=== PATIENT | male | born 1950 | race Caucasian/White ===

== ENCOUNTER 2018-03-31 19:30 | Emergency (ER) | payer OTHER ==
--- OUTSIDE RECORDS SUMMARY | 2018-03-31 19:32 | XMS REPORT | Clinical Summary ---
:1950 Author Organization [facility] Address [address] [place] [address] Care Team Providers Name Role Phone Scot Eaton MD Primary Care Provider Allergies Active Allergy Reactions Severity Noted Date Comments Hydrocodone Shortness Of Breath, High 07/22/2016 Nausea, itching Anxiety, Other (See Comments) Cephalexin 11/12/2017 Muscle and joint pain Latex, Natural Rubber Dermatitis, Itching, Low 07/22/2016 Rash Levofloxacin 11/12/2017 Muscle ache and pain Current Medications Prescription Sig. Disp. Refills Start Date End Date Status aspirin (CHILDREN'S Chew 81 mg as 02/03/2016 Active ASPIRIN) 81 mg needed. chewable tablet fluticasone 1 spray by 11/05/2015 Active (FLONASE) 50 Each Nare mcg/actuation nasal route every spray morning. bisoprolol (ZEBETA) Take 5 mg by 11/09/2017 Active 5 MG tablet mouth every morning. nortriptyline Take 25 mg by 11/07/2017 Active (PAMELOR) 25 MG mouth nightly. capsule fexofenadine Take 180 mg by Active (CHANTALE) 180 MG mouth every tablet evening. diltiazem XR 08/05/2015 11/12/2017 Discontinued (DILACOR XR) 180 MG 24 hr capsule LORAZepam (ATIVAN) 03/05/2016 11/12/2017 Discontinued 0.5 MG tablet magnesium oxide 400 02/03/2016 11/12/2017 Discontinued mg capsule methocarbamol Take 1 tablet 90 tablet 3 11/23/2017 01/05/2018 Discontinued (ROBAXIN-750) 750 (750 mg total) MG tablet by mouth 3 (three) times a day for 120 days. promethazine Take 1 tablet 30 tablet 0 11/23/2017 12/22/2017 Discontinued (PHENERGAN) 25 MG (25 mg total) tablet by mouth every 6 (six) hours as needed for nausea or vomiting. acetaminophen-codei Take 1-2 40 tablet 0 11/23/2017 12/22/2017 Discontinued ne (TYLENOL WITH tablets by CODEINE #3) 300-30 mouth every 4 mg per tablet (four) hours as needed for moderate pain for up to 30 days. Take with food Active Problems Problem Noted Date Aftercare following surgery 11/25/2017 Left wrist sprain 09/08/2017 Carpal tunnel syndrome, left 07/22/2016 Primary localized osteoarthrosis of left hand 07/22/2016 Dupuytren's contracture of left hand 07/22/2016 Encounters Date Type Specialty Care Team Description 03/09/2018 Office Visit Orthopedic Surgery Palmer Escobar, Primary localized MD osteoarthrosis of left hand (Primary Dx) 02/02/2018 Office Visit Orthopedic Surgery Palmer Escobar, Primary localized osteoarthrosis of left hand (Primary Dx); Aftercare following surgery 01/05/2018 Office Visit Orthopedic Surgery Palmer Escobar, Primary localized MD osteoarthrosis of left hand (Primary Dx) 12/22/2017 Office Visit Orthopedic Surgery Palmer Escobar, Primary localized osteoarthrosis of left hand (Primary Dx); Carpal tunnel syndrome, left; Aftercare following surgery 12/08/2017 Office Visit Orthopedic Surgery Palmer Escobar, Primary localized osteoarthrosis of left hand (Primary Dx); Carpal tunnel syndrome, left; Aftercare following surgery 12/03/2017 Office Visit Orthopedic Surgery Palmer Escobar, Primary localized osteoarthrosis of left hand (Primary Dx); Carpal tunnel syndrome, left; Aftercare following surgery 12/02/2017 Telephone Orthopedic Surgery Ramona Wallis MA 11/26/2017 Telephone Orthopedic Surgery Kylie Guevara PA 11/25/2017 Hospital Encounter Orthopedic Palmer Mandel MD 11/25/2017 Anesthesia Event Orthopedic Surgery Margarette Avalos MD 11/25/2017 Procedure Pass Orthopedic Surgery 11/25/2017 Surgery Orthopedic Surgery Palmer Escobar, ARTHROPLASTY JACKIE, CARPOMETACARPAL 11/23/2017 Orders Only Orthopedic Surgery Palmer Escobar MD 11/12/2017 Pre-Admit Testing Pre-Admission Palmer Escobar, Appointment Testing 11/12/2017 Office Visit Orthopedic Surgery Palmer Escobar, Primary localized osteoarthrosis of left hand (Primary Dx); Carpal tunnel syndrome, left 10/13/2017 Office Visit Orthopedic Surgery Palmer Escobar, Primary localized osteoarthrosis of left hand (Primary Dx); Carpal tunnel syndrome, left; Dupuytren's contracture of left hand 09/08/2017 Office Visit Orthopedic Surgery Palmer Escobar, Carpal tunnel syndrome, left (Primary Dx); Primary localized osteoarthrosis of left hand; Dupuytren's contracture of left hand; Sprain of left wrist, initial encounter 08/11/2017 Office Visit Orthopedic Surgery Palmer Escobar, Primary localized osteoarthrosis of left hand (Primary Dx); Dupuytresahra's contracture; Carpal tunnel syndrome, left after 03/30/2017 Family History Medical History Relation Name Comments Cancer Brother Cancer Father Cancer Mother Heart disease Mother Relation Name Status Comments Brother Father Mother Social History Tobacco Use Types Packs/Day Years Used Date Never Smoker Smokeless Tobacco: Former User Chew Quit: 1989 Alcohol Use Drinks/Week oz/Week Comments Yes 10 drinks per week Sex Assigned at Date Recorded Not on file Last Filed Vital Signs Vital Sign Reading Time Taken Blood Pressure 129/64 11/25/2017 5:50 PM CLINICAL NURSING PROFESSOR Pulse 74 11/25/2017 5:50 PM CLINICAL NURSING PROFESSOR Temperature 36.3 C (97.3 F) 11/25/2017 5:50 PM CLINICAL NURSING PROFESSOR Respiratory Rate 18 11/25/2017 5:50 PM CLINICAL NURSING PROFESSOR Oxygen Saturation 96% 11/25/2017 5:50 PM CLINICAL NURSING PROFESSOR Inhaled Oxygen Concentration - - Weight 96.6 kg (213 lb) 11/12/2017 11:31 AM CLINICAL NURSING PROFESSOR Height 175.3 cm (5' 9") 11/25/2017 11:50 AM CLINICAL NURSING PROFESSOR Body Mass Index 31.45 11/12/2017 11:31 AM CLINICAL NURSING PROFESSOR Plan of Treatment Date Type Specialty Care Team Description 04/13/2018 Office Visit Cardiology Shayne Butler MD [address] [address] Health Maintenance Due Date Last Done Comments COLON CANCER SCREENING 1999 SHINGRIX VACCINE (#1) 1999 ZOSTER VACCINE 2009 PNEUMOCOCCAL POLYSACCHARIDE VACCINE AGE 65 AND OVER 2014 PNEUMOCOCCAL-13 2014 INFLUENZA VACCINE 05/05/2018 Implants Implanted Type 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 Technician Device Expiration Model / Identifier Date Serial / Lot Wire K Dmnd Tip 0.045in 9mm - [id number] Temporary Left: [employer] [id number] / Implanted: Qty: 1 on 11/25/2017 by Palmer Escobar MD Fixation Pin Hand / or Wire Wire K Dmnd Tip 0.045in 9mm - [id number] Temporary Left: [employer] 26 [id number] / Implanted: Qty: 1 on 11/25/2017 by Palmer Escobar MD Fixation Pin Hand / or Wire Wire Krsch .[id number] - [id number] Temporary Left: [employer] [id number] / Implanted: Qty: 1 on 11/25/2017 by Palmer Escobar MD Fixation Pin Hand / or Wire Procedures Procedure Name Priority Date/Time Associated Diagnosis Comments XR HAND 3+ VW LEFT Routine 02/02/2018 1:26 Primary localized Results for this PM CDT osteoarthrosis of left procedure are in hand the results section. XR HAND 3+ VW LEFT Routine 01/05/2018 2:37 Primary localized Results for this PM CDT osteoarthrosis of left procedure are in hand the results section. XR HAND 3+ VW LEFT Routine 12/22/2017 2:14 Primary localized Results for this PM CDT osteoarthrosis of left procedure are in hand the results section. XR HAND 3+ VW LEFT Routine 12/08/2017 2:52 Primary localized Results for this PM CLINICAL NURSING PROFESSOR osteoarthrosis of left procedure are in hand the results Carpal tunnel section. syndrome, left PA APPLY FOREARM Routine 12/08/2017 2:50 Primary localized Results for this SPLINT,STATIC PM CLINICAL NURSING PROFESSOR osteoarthrosis of left procedure are in hand the results Carpal tunnel section. syndrome, left Aftercare following surgery PA APPLY FOREARM Routine 12/03/2017 11:50 Primary localized Results for this SPLINT,STATIC AM CLINICAL NURSING PROFESSOR osteoarthrosis of left procedure are in hand the results Aftercare following section. surgery XR HAND 3+ VW LEFT Routine 12/03/2017 11:30 Primary localized Results for this AM CLINICAL NURSING PROFESSOR osteoarthrosis of left procedure are in hand the results section. PA AN PERIPHERAL Routine 11/25/2017 4:58 BLOCK PROCEDURE FOR PM CLINICAL NURSING PROFESSOR PAIN Procedure Note - Sumit Lobo MD - 11/25/2017 4:58 PM CLINICAL NURSING PROFESSOR Peripheral Block Performed by: SUMIT LOBO Authorized by: SUMIT LOBO Patient Location: PACU Reason for Block: at surgeon's request, post-op pain management, procedure for pain Staff: Anesthesiologist: SUMIT LOBO Performed by: Anesthesiologist Preprocedure: patient identified, IV checked, site and side verified, risks and benefits discussed, procedure verified, surgical consent complete, patient position confirmed, monitors and equipment checked, pre-op evaluation complete and site marked Peripheral Nerve Block: Patient Position: Supine Prep: ChloraPrep Monitoring: Blood pressure monitoring, continuous pulse oximetry and heart rate Block Type: Supraclavicular Laterality: Left Injection Technique: Single injection Procedures: ultrasound guided Ultrasound documentation: Images saved on hard disk and printed/placed in chart Local Infiltration (See MAR for details): Ropivacaine Needle: Needle Type: Pajunk Needle Length: 10 cm Assessment: Injection Assessment: Visualized needle/local anesthetic surrounding nerve , intermittent aspiration during local anesthetic administration, visualized pertinent vascular structures and nerves, no symptoms of intraneural/intravenous injection and needle tip visualized at all times during injection of medication Paresthesia Pain: None Heart Rate Change: No Slow Fractionated Injection: Yes Block outcome: No apparent complications, patient comfortable and patient tolerated procedure well PA AN PERIPHERAL BLOCK POST-OP PAIN Routine 11/25/2017 4:58 PM CLINICAL NURSING PROFESSOR Procedure Note - Sumit Loob MD - 11/25/2017 4:58 PM CLINICAL NURSING PROFESSOR Peripheral Block Performed by: SUMIT LOBO Authorized by: SUMIT LOBO Patient Location: PACU Reason for Block: at surgeon's request, post-op pain management, procedure for pain Staff: Anesthesiologist: SUMIT LOBO Performed by: Anesthesiologist Preprocedure: patient identified, IV checked, site and side verified, risks and benefits discussed, procedure verified, surgical consent complete, patient position confirmed, monitors and equipment checked, pre-op evaluation complete and site marked Peripheral Nerve Block: Patient Position: Supine Prep: ChloraPrep Monitoring: Blood pressure monitoring, continuous pulse oximetry and heart rate Block Type: Supraclavicular Laterality: Left Injection Technique: Single injection Procedures: ultrasound guided Ultrasound documentation: Images saved on hard disk and printed/placed in chart Local Infiltration (See MAR for details): Ropivacaine Needle: Needle Type: Pajunk Needle Length: 10 cm Assessment: Injection Assessment: Visualized needle/local anesthetic surrounding nerve , intermittent aspiration during local anesthetic administration, visualized pertinent vascular structures and nerves, no symptoms of intraneural/intravenous injection and needle tip visualized at all times during injection of medication Paresthesia Pain: None Heart Rate Change: No Slow Fractionated Injection: Yes Block outcome: No apparent complications, patient comfortable and patient tolerated procedure well PA AN ELECTIVE SUPRAGLOTTIC AIRWAY Routine 11/25/2017 3:15 PM CLINICAL NURSING PROFESSOR Procedure Note - Quinn Bishop CRNA - 11/25/2017 3:15 PM CLINICAL NURSING PROFESSOR Airway Performed by: QUINN BISHOP Authorized by: JOHN MONROE Location: OR Urgency: Elective Difficult Airway: No Preoxygenated with 100% O2: Yes C-spine Precautions Maintained Throughout: No Mask Ventilation: Not attempted Final Airway Type: Supraglottic airway Final LMA: I-Gel LMA Size: 5 Number of Attempts at Approach: 1 Atraumatic, teeth/tissue unchanged. RELEASE, CARPAL TUNNEL 11/25/2017 2:00 Carpal tunnel PM CLINICAL NURSING PROFESSOR syndrome, left ARTHRODESIS, THUMB, 11/25/2017 2:00 Carpal tunnel CARPOMETACARPAL PM CLINICAL NURSING PROFESSOR syndrome, left POC GLUCOSE Routine 11/25/2017 12:29 Results for this PM CLINICAL NURSING PROFESSOR procedure are in the results section. XR HAND 3+ VW LEFT Routine 08/11/2017 3:51 Primary localized Results for this PM CLINICAL NURSING PROFESSOR osteoarthrosis of procedure are in left hand the results Dupuytren's section. contracture Carpal tunnel syndrome, left after 03/30/2017 Results XR Hand 3+ Vw Left (02/02/2018 1:26 PM)Only the most recent of6 resultswithin the time period is included. Narrative Performed At PA, lateral, oblique x-rays demonstrate satisfactory maintenance of the [facility] trapezial space.No remaining hardware is noted. Performing Organization Address City/State/Zipcode Phone Number [facility] [address] [place] [address] ORTHOPEDIC INJURY TREATMENT (12/08/2017 2:50 PM) Narrative Performed At Palmer Escobar MD 12/08/20173:51 PM Orthopedic Injury Treatment Date/Time: 12/08/2017 3:50 PM Performed by: PALMER ESCOBAR Authorized by: PALMER ESCOBAR Consent given by: parent Injury Location details: left hand Pre-procedure assessment Distal perfusion: normal Distal sensation: normal Range of motion: reduced Procedure Manipulation performed? no manipulation performed Anesthetics: local anesthesia not used Immobilization: splint Splint/Brace type: thumb spica Supplies used: cotton padding and Ortho-Glass Post-procedure assessment Distal perfusion: normal Distal sensation: normal Patient tolerance: patient tolerated the procedure well with no immediate complications ORTHOPEDIC INJURY TREATMENT (12/03/2017 11:50 AM) Narrative Performed At Palmer Escobar MD 12/03/2017 11:46 AM Orthopedic Injury Treatment Date/Time: 12/03/2017 11:44 AM Performed by: PALMER ESCOBRA Authorized by: PALMER ESCOBAR Consent given by: patient Site marked: site marked Injury Location details: left hand Pre-procedure assessment Distal perfusion: normal Distal sensation: normal Range of motion: reduced Procedure Manipulation performed? no manipulation performed Anesthetics: local anesthesia not used Immobilization: splint Splint/Brace type: thumb spica Supplies used: cotton padding and Ortho-Glass Post-procedure assessment Distal perfusion: normal Distal sensation: normal Patient tolerance: patient tolerated the procedure well with no immediate complications POC glucose (11/25/2017 12:29 PM) POC glucose 91 65 - 99 mg/dL [facility] DEPARTMENT OF PATHOLOGY AND Comment: GENOMIC MEDICINE Meter ID: [id number] Community Life Director: Marco Hernandez Performing Organization Address City/State/Zipcode Phone Number [facility] DEPARTMENT OF PATHOLOGY AND [address] [place] [id number] GENOMIC MEDICINE after 03/30/2017 Insurance Payer Benefit Plan / Group Subscriber ID Type Phone Address AETNA AETNA HMO,POS,EPO, MC/EC xxxxxxxxx O MEDICARE MEDICARE PART A xxxxxxxxxx Medicare [place], [place] [phone] [place] [address]
[2018-03-31 20:07] LABS: Absolute Lymphocytes (CBC) 2.9 K/uL (0.7-4.9); Absolute Monocytes 0.6 K/uL (0.1-1.3); Absolute Neutrophil 3.1 K/uL (1.8-8.0); Basophils % 0.6 % (0-1.3); Eosinophils % 1.6 % (0-4.4); Hematocrit 42.6 % (39.6-49.0); Lymphocytes % 42.9 % (15.3-44.8); MCH 31.9 pg (27.0-35.0); MCV 96.8 fL (80-100); MPV 8.6 fL (7.6-11.3); Monocytes % 8.3 % (3.3-12.3)
[2018-03-31 20:11] LABS: Protime INR 0.96
[2018-03-31] MEDS ORDERED: SUCRALFATE 1GM/10ML UCUP ONE (20:23)
[2018-03-31 20:28] LABS: ALT/SGPT 34 U/L (12-78); AST/SGOT 20 U/L (15-37); Albumin 3.8 g/dL (3.4-5.0); Alkaline Phosphatase 61 U/L (45-117); BUN Blood Urea Nitrogen 16 mg/dL (7-18); Bicarbonate 30 mmol/L (21-32); Bilirubin Direct < 0.1 mg/dL (0-0.2); Bilirubin Total 0.2 mg/dL (0.2-1.0); Glucose Level 98 mg/dL (74-106); Lipase 251 U/L (73-393); Magnesium 2.4 mg/dL (1.8-2.4); Potassium 4.3 mmol/L (3.5-5.1); Protein, Total 7.2 g/dL (6.4-8.2); Sodium Level 140 mmol/L (136-145)
--- NOTE | 2018-03-31 21:32 | RAD REPORT ---
EXAM DESCRIPTION: RAD - Chest Single View - 03/31/2018 8:17 pm CLINICAL HISTORY: Persistent chest pain COMPARISON: April 2017 TECHNIQUE: AP portable chest image was obtained 2013 hours . FINDINGS: Lungs are clear. Heart and vasculature are normal. No measurable pleural effusion and no p neumothorax. No gross bony abnormality seen. No acute aortic findings suspected. IMPRESSION: No acute cardiopulmonary process. No significant interval change.
--- NOTE | 2018-03-31 22:23 | ER ---
Nurse's Notes [facility] Name: Ton Faith Age: 67 yrs Sex: Male : 1950 Arrival Date: 03/31/2018 Time: 19:32 Bed 5 Private MD: Scot Eaton Diagnosis: Epigastric pain;Essential (primary) hypertension Presentation: 03/31 19:46 Presenting complaint: Patient states: I have had chest pain for about 1 week with some tl1 acid reflux. I have an appointment with the pipeline systems operator next week but wanted to make sure it wasn't cardiac related. I also have constant migraines and see a neurologist. Transition of care: patient was not received from another setting of care. Onset of symptoms was March 24, 2018. Risk Assessment: Do you want to hurt yourself or someone else? Patient reports no desire to harm self or others. Initial Sepsis Screen: Does the patient meet any 2 criteria? No. Patient's initial sepsis screen is negative. Does the patient have a suspected source of infection? No. Patient's initial sepsis screen is negative. Care prior to arrival: Medication(s) given: ASA, 81 mg. 19:46 Method Of Arrival: Wheelchair tl1 19:46 Acuity: ARACELIS 2 tl1 Historical: - Allergies: 19:52 HYDROCODONE; tl1 19:52 Keflex; tl1 19:52 latex; tl1 19:52 Levofloxacin; tl1 19:52 Latex, Natural Rubber; tl1 - Home Meds: 19:52 Amitriptyline Oral [Active]; bisoprolol fumarate oral oral [Active]; tl1 - PMHx: 19:52 Hypertension; Migraines; tl1 - PSHx: 19:52 Carpal Tunnel Repair; tl1 - Immunization history:: Adult Immunizations up to date. - Social history:: Smoking status: Patient/guardian denies using tobacco, never smoked. - Ebola Screening: : Patient negative for fever greater than or equal to 101.5 degrees Fahrenheit, and additional compatible Ebola Virus Disease symptoms Patient denies exposure to infectious person Patient denies travel to an Ebola-affected area in the 21 days before illness onset. Screenin:59 Abuse screen: Denies threats or abuse. Denies injuries from another. Nutritional tl1 screening: No deficits noted. Tuberculosis screening: No symptoms or risk factors identified. Fall Risk IV access (20 points). Assessment: 19:56 General: Appears in no apparent distress. Behavior is calm, cooperative, appropriate tl1 for age. Pain: Complains of pain in xyphoid area and mid-sternal area Pain does not radiate. 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 Neuro: Level of Consciousness is awake, alert, obeys commands, Oriented to person, place, time, situation, Blackener are equal bilaterally Moves all extremities. Cardiovascular: Reports chest pain, lightheadedness, nausea, Heart tones present Capillary refill < 3 seconds JVD is absent Patient's skin is warm and dry. Rhythm is sinus rhythm. Respiratory: Reports cough that is Airway is patent Breath sounds are clear bilaterally. GI: Bowel sounds present X 4 quads. Abd is soft and non tender X 4 quads. Reports epigastric pain, nausea, Patient currently denies vomiting. : No signs and/or symptoms were reported regarding the genitourinary system. EENT: No signs and/or symptoms were reported regarding the EENT system. 20:45 Reassessment: Patient appears in no apparent distress at this time. Patient and/or tl2 family updated on plan of care and expected duration. Pain level reassessed. Patient is alert, oriented x 3, equal unlabored respirations, skin warm/dry/pink. 22:34 Reassessment: No changes from previously documented assessment. Patient and/or family tl1 updated on plan of care and expected duration. Pain level reassessed. Patient is alert, oriented x 3, equal unlabored respirations, skin warm/dry/pink. Patient states feeling better. Patient states symptoms have improved. Vital Signs: 19:53 BP 150 / 84; Pulse 67; Resp 16; Temp 99.3(O); Pulse Ox 100% on R/A; Weight 95.25 kg; tl1 Height 5 ft. 9 in. (175.26 cm); Pain 4/10; 20:45 BP 146 / 81; Pulse 61; Resp 14; Pulse Ox 98% on R/A; tl2 21:13 BP 127 / 79; Pulse 61; Resp 13; Pulse Ox 100% on R/A; tl2 21:36 BP 132 / 81; Pulse 60; Resp 21; Pulse Ox 98% on R/A; tl2 22:36 BP 136 / 75; Pulse 57; Resp 16; Temp 98.5; Pulse Ox 99% on R/A; Pain 2/10; tl1 19:53 Body Mass Index 31.01 (95.25 kg, 175.26 cm) tl1 ED Course: 19:32 Patient arrived in ED. am2 19:32 Scot Eaton MD is Private Physician. am2 19:38 Delvin Andres MD is Attending Physician. gs 19:46 Trish Good RN is Primary Nurse. tl1 19:46 Inserted saline lock: 20 gauge in right antecubital area, using aseptic technique. tl2 Blood collected. 19:46 Initial lab(s) drawn, by me, sent to lab. EKG done, by ED staff. tl2 19:48 Triage completed. tl1 19:55 Arm band placed on right wrist. tl1 20:14 X-ray completed. Portable x-ray completed in exam room. Patient tolerated procedure kc2 well. 20:16 XRAY Chest (1 view) In Process Unspecified. EDMS 22:35 No provider procedures requiring assistance completed. IV discontinued, intact, tl1 bleeding controlled, No redness/swelling at site. Pressure dressing applied. Patient maintains SpO2 saturation greater than 95% on room air. Administered Medications: 20:26 Drug: CarafATE 1 grams Route: PO; tl1 22:37 Follow up: Response: No adverse reaction; Marked relief of symptoms tl1 Outcome: 22:23 Discharge ordered by . gs 22:37 Patient left the ED. tl1 Signatures: Dispatcher [employer] EDMS Trish Good RN RN tl1 Lauren Pittman [facility] Toshia Ordaz RN RN tl2 Analy [place] 2 Delvin Andres MD MD
--- NOTE | 2018-03-31 22:23 | EDPHYS ---
Physician Documentation [facility] Name: Ton Faith Age: 67 yrs Sex: Male : 1950 Arrival Date: 03/31/2018 Time: 19:32 Bed 5 Private MD: Scot Eaton ED Physician Delvin Andres HPI: 03/31 22:19 This 67 yrs old Male presents to ER via Wheelchair with complaints of Chest gs Pain > 30 y/o, Headache. 22:19 The patient or guardian reports chest pain that is located primarily in the epigastric gs area. Onset: 1 year(s) ago. The pain does not radiate. Associated signs and symptoms: Pertinent negatives: shortness of breath. The chest pain is described as burning, causing indigestion. Duration: The patient or guardian reports multiple episodes, that are intermittent, that wax and wane, with no pattern. Modifying factors: The symptoms are alleviated by nothing. the symptoms are aggravated by nothing. Severity of pain: At its worst the pain was mild in the emergency department the pain is unchanged. The patient has experienced similar episodes in the past, chronically, has seen for this continues to be worked up by neurology for his vertigo which has accompanied this and cardiology has new chief analytics officer this next week. according to him and is chronic. Historical: - Allergies: 19:52 HYDROCODONE; tl1 19:52 Keflex; tl1 19:52 latex; tl1 19:52 Levofloxacin; tl1 19:52 Latex, Natural Rubber; tl1 - Home Meds: 19:52 Amitriptyline Oral [Active]; bisoprolol fumarate oral oral [Active]; tl1 - PMHx: 19:52 Hypertension; Migraines; tl1 - PSHx: 19:52 Carpal Tunnel Repair; tl1 - Immunization history:: Adult Immunizations up to date. - Social history:: Smoking status: Patient/guardian denies using tobacco, never smoked. - Ebola Screening: : Patient negative for fever greater than or equal to 101.5 degrees Fahrenheit, and additional compatible Ebola Virus Disease symptoms Patient denies exposure to infectious person Patient denies travel to an Ebola-affected area in the 21 days before illness onset. ROS: 22:19 All other systems are negative. gs 22:19 Abdomen/GI: Negative for abdominal distension, rectal bleeding. gs Exam: 22:19 Head/Face: Normocephalic, atraumatic. Eyes: Pupils equal round and reactive to light, gs extra-ocular motions intact. Lids and lashes normal. Conjunctiva and sclera are non-icteric and not injected. Cornea within normal limits. Periorbital areas with no swelling, redness, or edema. ENT: Nares patent. No nasal discharge, no septal abnormalities noted. Tympanic membranes are normal and external auditory canals are clear. Oropharynx with no redness, swelling, or masses, exudates, or evidence of obstruction, uvula midline. Mucous membranes moist. Neck: Trachea midline, no thyromegaly or masses palpated, and no cervical lymphadenopathy. Supple, full range of motion without nuchal rigidity, or vertebral point tenderness. No Meningismus. Chest/axilla: Normal chest wall appearance and motion. Nontender with no deformity. No lesions are appreciated. Cardiovascular: Regular rate and rhythm with a normal S1 and S2. No gallops, murmurs, or rubs. Normal PMI, no JVD. No pulse deficits. Respiratory: Lungs have equal breath sounds bilaterally, clear to auscultation and percussion. No rales, rhonchi or wheezes noted. No increased work of breathing, no retractions or nasal flaring. Abdomen/GI: Soft, non-tender, with normal bowel sounds. No distension or tympany. No guarding or rebound. No evidence of tenderness throughout. Back: No spinal tenderness. No costovertebral tenderness. Full range of motion. Skin: Warm, dry with normal turgor. Normal color with no rashes, no lesions, and no evidence of cellulitis. MS/ Extremity: Pulses equal, no cyanosis. Neurovascular intact. Full, normal range of motion. Neuro: Awake and alert, GCS 15, oriented to person, place, time, and situation. Cranial nerves II-XII grossly intact. Motor strength 5/5 in all extremities. Sensory grossly intact. Cerebellar exam normal. Normal gait. 22:19 Constitutional: The patient appears alert, awake. 22:19 ECG was reviewed by the Attending Physician. Vital Signs: 19:53 BP 150 / 84; Pulse 67; Resp 16; Temp 99.3(O); Pulse Ox 100% on R/A; Weight 95.25 kg; tl1 Height 5 ft. 9 in. (175.26 cm); Pain 4/10; 20:45 BP 146 / 81; Pulse 61; Resp 14; Pulse Ox 98% on R/A; tl2 21:13 BP 127 / 79; Pulse 61; Resp 13; Pulse Ox 100% on R/A; tl2 21:36 BP 132 / 81; Pulse 60; Resp 21; Pulse Ox 98% on R/A; tl2 22:36 BP 136 / 75; Pulse 57; Resp 16; Temp 98.5; Pulse Ox 99% on R/A; Pain 2/10; tl1 19:53 Body Mass Index 31.01 (95.25 kg, 175.26 cm) tl1 MDM: 19:52 Patient medically screened. 22:19 Differential diagnosis: abnormal EKG, pancreatitis, peptic ulcer disease. Data reviewed: vital signs. 22:24 Response to treatment: the patient's symptoms have resolved after treatment, the patient's condition has returned to base line. 03/31 19:53 Order name: PT-INR; Complete Time: 20:51 03/31 19:53 Order name: Basic Metabolic Panel; Complete Time: 20:51 03/31 19:53 Order name: CBC with Diff; Complete Time: 20:51 03/31 19:53 Order name: LFT's; Complete Time: 20:51 03/31 19:53 Order name: Magnesium; Complete Time: 20:51 03/31 19:53 Order name: Troponin (emerg Dept Use Only); Complete Time: 20:51 03/31 19:53 Order name: XRAY Chest (1 view); Complete Time: 21:53 03/31 19:53 Order name: EKG; Complete Time: 19:53 03/31 19:53 Order name: Cardiac monitoring; Complete Time: 19:54 03/31 19:53 Order name: EKG - Nurse/Tech; Complete Time: 19:54 03/31 19:53 Order name: IV Saline Lock; Complete Time: 19:54 03/31 19:53 Order name: Labs collected and sent; Complete Time: 19:54 03/31 19:53 Order name: Lipase; Complete Time: 20:51 03/31 19:53 Order name: O2 Per Protocol; Complete Time: 19:54 03/31 19:53 Order name: O2 Sat Monitoring; Complete Time: 19:54 gs EC:19 Rate is 68 beats/min. Rhythm is regular. WA interval is normal. QRS interval is normal. gs QT interval is normal. No ST changes noted. Clinical impression: Normal ECG. Interpreted by me. Administered Medications: 20:26 Drug: CarafATE 1 grams Route: PO; tl1 22:37 Follow up: Response: No adverse reaction; Marked relief of symptoms tl1 Disposition: 03/31/18 22:23 Discharged to Home. Impression: Epigastric pain, Essential (primary) hypertension. - Condition is Stable. - Discharge Instructions: Hypertension, Managing Your High Blood Pressure. - Medication Reconciliation Form, Thank You Letter, Antibiotic Education, Prescription Opioid Use form. - Follow up: Private Physician; When: Tomorrow; Reason: Recheck today's complaints, Re-evaluation by your physician. Signatures: Dispatcher [employer] EDMS Trish Good RN RN tl1 Delvin Andres MD MD Corrections: (The following items were deleted from the chart) 22:37 22:23 03/31/2018 22:23 Discharged to Home. Impression: Epigastric pain; Essential tl1 (primary) hypertension. Condition is Stable. Forms are Medication Reconciliation Form, Thank You Letter, Antibiotic Education, Prescription Opioid Use. Follow up: Private Physician; When: Tomorrow; Reason: Recheck today's complaints, Re-evaluation by your physician. gs
[2018-03-31 22:45] VITALS: BP 136/75; TEMP 98.5; O2SAT 99
--- NOTE | 2018-04-01 06:54 | EKG ---
Test Date: 2018-03-31 Test Time: 19:38:44 Guide Visitor: KEDAR MEASUREMENT RESULTS: Intervals: Rate: 68 MI: 198 QRSD: 76 QT: 394 QTc: 418 [place]: P: 38 MI: 198 QRS: 10 T: 49 INTERPRETIVE STATEMENTS: Normal sinus rhythm Normal ECG Compared to ECG 04/27/2017 07:45:52 No significant changes Electronically Signed On 04-01-18 06:54:08 CDT by Dominick Henriquez
== END 2018-03-31 22:37 | disposition home or self-care (01) ==
LOC: ER 19:30
DX: R10.13 Epigastric pain (principal); Z88.5 Allergy status to narcotic agent; Z88.8 Allergy status to other drugs, medicaments and biological substances; Z88.1 Allergy status to other antibiotic agents; Z91.040 Latex allergy status; I10 Essential (primary) hypertension; G43.909 Migraine, unspecified, not intractable, without status migrainosus
CPT/HCPCS: 36415; 71045; 80048; 80076; 83690; 83735; 84484; 85025; 85610; 93005; 99285

== ENCOUNTER 2019-05-02 18:58 | Observation (INO) | payer OTHER ==
--- OUTSIDE RECORDS SUMMARY | 2019-05-02 19:01 | XMS REPORT | Clinical Summary ---
:1950 Author Organization [facility] Address [address] [place] [address] Care Team Providers Name Role Phone Scot Eaton MD Primary Care Provider Allergies Active Allergy Reactions Severity Noted Date Comments Hydrocodone Shortness Of Breath, High 07/22/2016 Nausea, itching Anxiety, Other (See Comments) Cephalexin 11/12/2017 Muscle and joint pain Latex, Natural Rubber Dermatitis, Itching, Low 07/22/2016 Rash Levofloxacin 11/12/2017 Muscle ache and pain Medications Medication Sig Dispensed Refills Start Date End Date Status fluticasone (FLONASE) 50 1 spray by 0 11/05/2015 Active mcg/actuation nasal Each Nare spray route every morning. fexofenadine (CHANTALE) Take 180 mg 0 Active 180 MG tablet by mouth every evening. pravastatin (PRAVACHOL) Take 1 90 tablet 3 05/04/2018 05/04/20 Active 40 MG tablet tablet (40 19 mg total) by mouth daily. gabapentin (NEURONTIN) 0 12/17/2018 Active 100 mg capsule meclizine (ANTIVERT) 25 Take 25 mg 3 03/02/2019 Active mg tablet by mouth every 8 (eight) hours as needed. bisoprolol (ZEBETA) 10 TAKE 1 90 tablet 3 05/02/2019 Active MG tablet TABLET BY MOUTH EVERY DAY aspirin (CHILDREN'S Chew 81 mg 0 02/03/2016 03/21/20 Discontinued ASPIRIN) 81 mg chewable as needed. 19 tablet bisoprolol (ZEBETA) 5 MG Take 5 mg by 0 11/09/2017 05/11/20 Discontinued tablet mouth every 18 morning. nortriptyline (PAMELOR) Take 25 mg 0 11/07/2017 03/21/20 Discontinued 25 MG capsule by mouth 19 nightly. sucralfate (CARAFATE) 1 Take 1 g by 0 03/21/20 Discontinued gram tablet mouth 2 19 (two) times a day. rosuvastatin (CRESTOR) Take 1 90 tablet 3 04/13/2018 06/29/20 Discontinued 10 MG tabletIndications: tablet (10 18 Chest pain, unspecified mg total) by type, Syncope, mouth daily. unspecified syncope type hydroCHLOROthiazide Take 1 90 tablet 3 04/16/2018 06/29/20 Discontinued (HYDRODIURIL) 25 MG tablet (25 18 tablet mg total) by mouth daily. pravastatin (PRAVACHOL) Take 1 90 tablet 3 04/29/2018 05/04/20 Discontinued 40 MG tablet tablet (40 18 mg total) by mouth daily. bisoprolol (ZEBETA) 10 Take 1 90 tablet 3 05/11/2018 04/30/20 Discontinued MG tablet tablet (10 19 mg total) by mouth daily. ALPRAZolam (XANAX) 0.5 Take 0.5 mg 0 04/29/2018 03/21/20 Discontinued MG tablet by mouth 19 every 8 (eight) hours as needed. for anxiety Active Problems Problem Noted Date Essential hypertension 04/13/2018 Carotid bruit 04/13/2018 Chest pain 04/13/2018 Syncope 04/13/2018 Pure hypercholesterolemia 04/13/2018 Aftercare following surgery 11/25/2017 Left wrist sprain 09/08/2017 Carpal tunnel syndrome, left 07/22/2016 Primary localized osteoarthrosis of left hand 07/22/2016 Dupuytren's contracture of left hand 07/22/2016 Encounters Date Type Specialty Care Team Description 04/30/2019 Refill Cardiology Shayne Butler Med Refill MD Teresita 04/28/2019 Orders Only Cardiology Maia, Dizziness (Primary Dx); TRACE Guaman Light headedness 03/21/2019 Office Visit Orthopedic Surgery Toshia Toth Left knee pain, unspecified chronicity (Primary Dx); MD [place]ah[place] Primary localized osteoarthritis of left knee 02/08/2019 Office Visit Cardiology Shayne Butler Essential hypertension MD Teresita (Primary Dx) 09/08/2018 Orders Only Cardiology Karin Torres Chest pain, unspecified type; Y Syncope, unspecified syncope type 06/29/2018 Office Visit Cardiology Shayne Butler Essential hypertension ( Primary Dx); MD Teresita Pure hypercholesterolemia 06/04/2018 Orders Only Cardiology Shayne Butler MD 05/11/2018 Orders Only Cardiology Rowena Carvalho MA 05/07/2018 Orders Only Cardiology Karin Torres Chest pain, unspecified type; Y Syncope, unspecified syncope type 05/04/2018 Orders Only Cardiology Shayne Butler MD 05/04/2018 Refill Cardiology Shayne Butler Med Refill MD Teresita after 05/01/2018 Family History Medical History Relation Name Comments Cancer Brother Hypertension Brother Juan Fan. Hypertension Brother Steve Saunders Cancer Father Heart attack Maternal Uncle Momo Cancer Mother Danica Heart disease Mother Danica Heart failure Mother Danica Fainting Paternal Uncle Jaky several episode in his late 80's and early 90's Heart attack Paternal Uncle Jorge P Fainting Sister Tanya within last year had 2-3 episodes Relation Name Status Comments Brother Brother Juan Fan. Brother Steve Saunders Father Maternal Uncle Momo Mother Danica Paternal Uncle Jaky Paternal Uncle Jorge P Sister Tanya Social History Tobacco Use Types Packs/Day Years Used Date Never Smoker Smokeless Tobacco: Former User Quit: 1989 Comments: Smokeless tobacco user for approximately 18 years. Last used in 1985 Alcohol Use Drinks/Week oz/Week Comments Yes 6 Glasses of wine 10 drinks per week 6-8 Cans of beer 0 Shots of liquor Sex Assigned at Date Recorded Male 02/07/2019 7:02 PM CDT Job Start Date Occupation Industry Not on file Not on file Not on file Travel History Travel Start Travel End No recent travel history available. Last Filed Vital Signs Vital Sign Reading Time Taken Blood Pressure 146/66 02/08/2019 8:24 AM CDT Pulse 55 02/08/2019 8:24 AM CDT Temperature - - Respiratory Rate - - Oxygen Saturation - - Inhaled Oxygen Concentration - - Weight 90.7 kg (200 lb) 03/21/2019 8:41 AM CDT Height 177.8 cm (5' 10") 03/21/2019 8:41 AM CDT Body Mass Index 28.7 03/21/2019 8:41 AM CDT Plan of Treatment Date Type Specialty Care Team Description 06/07/2019 Office Visit Cardiology Shayne Butler MD [address] [address] [phone] 02/07/2020 Office Visit Cardiology Shayne Butler MD [address] [facility] [address] [place], [place] [id number] Health Maintenance Due Date Last Done Comments COLONOSCOPY SCREENING 1999 SHINGLES VACCINES (#1) 1999 65+ PNEUMOCOCCAL VACCINE (1 of 2 - PCV13) 2014 INFLUENZA VACCINE 05/05/2019 07/22/2018 Implants Implanted Type 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 Shelf Model / Identifier Expiration Serial / Date Lot Wire K Dmnd Tip 0.045in 9mm - [id number] Temporary Left: [employer] 26 [id number] / Implanted: Qty: 1 on 11/25/2017 by Reji Escobar MD Fixation Pin Hand / or Wire Wire K Dmnd Tip 0.045in 9mm - [id number] Temporary Left: [employer] 26 [id number] / Implanted: Qty: 1 on 11/25/2017 by Reji Escobar MD Fixation Pin Hand / or Wire Wire Krsch .[id number] - [id number] Temporary Left: [employer] 26 [id number] / Implanted: Qty: 1 on 11/25/2017 by Reji Escobar MD Fixation Pin Hand / or Wire Procedures Procedure Name Priority Date/Time Associated Diagnosis Comments XR KNEE 4+ VW LEFT Routine 03/21/2019 8:58 Left knee pain, Results for this AM CDT unspecified procedure are in chronicity the results section. SD ARTHROCENTESIS Routine 03/21/2019 8:40 Primary localized Results for this ASPIR&/INJ MAJOR AM CDT osteoarthritis of procedure are in JT/BURSA W/O US left knee the results section. LIPID PANEL Routine 06/04/2018 8:01 Results for this AM CDT procedure are in the results section. COPY RECEIVED FROM: Routine 06/04/2018 8:01 Results for this AM CDT procedure are in the results section. AST (SGOT) Routine 06/04/2018 8:01 Results for this AM CDT procedure are in the results section. NON HDL CHOLESTEROL Routine 06/04/2018 8:01 Results for this ([facility]) AM CDT procedure are in the results section. CHOL/HDLC RATIO Routine 06/04/2018 8:01 Results for this ([facility]LEX [facility]) AM CDT procedure are in the results section. LDL-CHOLESTEROL Routine 06/04/2018 8:01 Results for this ([facility]LEX [facility]) AM CDT procedure are in the results section. TRIGLYCERIDES Routine 06/04/2018 8:01 Results for this AM CDT procedure are in the results section. HDL CHOLESTEROL Routine 06/04/2018 8:01 Results for this AM CDT procedure are in the results section. CHOLESTEROL Routine 06/04/2018 8:01 Results for this AM CDT procedure are in the results section. COPY(IES) SENT TO: Routine 06/04/2018 8:01 Results for this AM CDT procedure are in the results section. NM MYOCARDIAL Routine 05/07/2018 PERFUSION OBTAIN MEDICAL RECORDS Routine 05/04/2018 after 05/01/2018 Results XR Knee 4+ Vw Left (03/21/2019 8:58 AM CDT) Specimen Narrative Performed At Radiographs of the left knee, 4 views, standing AP, standing PA notch, RADIANT lateral, and sunrise views: No fracture, no dislocation, varus alignment, decreased medial and patellofemoral joint space and osteophyte formation, and no pathologic lesion Performing Organization Address City/State/Zipcode Phone Number [facility] [address] [place] [address] Large Joint Arthrocentesis: knee, L knee (03/21/2019 8:40 AM CDT) Narrative Performed At Toshia Toth MD 03/21/20199:19 AM Large Joint Arthrocentesis: knee, L knee Supporting Documentation Indications: pain Procedure Details Location: knee - L knee Left side: Approach: anteromedial Left knee medications administered: 2 mL lidocaine 10 mg/mL (1 %); 6 mg betamethasone acetate & sodium phosphate 6 mg/mL (The patient will apply ice to the injected area today and use OTC meds as needed for injection pain. We discussed potential risks to include infection, pain, ineffectuality, fat atrophy, skin pigmentation loss, and need for more treatment.) NON HDL CHOLESTEROL ([facility]) (06/04/2018 8:01 AM CDT) Non-HDL cholesterol 116 <130 mg/dL [facility] Comment: (calc) PAZ For patients with diabetes plus 1 major ASCVD risk factor, treating to a non-HDL-C goal of <100 mg/dL (LDL-C of <70 mg/dL) is considered a therapeutic option. Specimen Narrative Performed At FASTING:YES [facility] FASTING: YES Resulting Agency Comment Performing Organization Information: Site ID: A Name: [facility] Address: [address] [place] [address] Director: Gifty Arevalo Performing Organization Address [facility] Phone Number [place] [address] CHOL/HDLC RATIO (REFLEX [facility]) (06/04/2018 8:01 AM CDT) Cholesterol/HDL ratio 3.4 <5.0 (calc) [facility] [place] Specimen Narrative Performed At FASTING:YES [facility] FASTING: YES Resulting Agency Comment Performing Organization Information: Site ID: [id number] Name: [facility] Address: [address] [place] [address] Director: Gifty Arevalo Performing Organization Address [facility] Phone [place] [address] COPY RECEIVED FROM: (06/04/2018 8:01 AM CDT) Copy received from: [facility] Comment: VICKIE POLANCO C[facility] [id number] [facility] [address] [place] [address] Specimen Narrative Performed At FASTING:YES [facility] FASTING: YES Performing Organization Address [facility] Phone Number [facility] LDL-CHOLESTEROL ([facility]LEX [facility]) (06/04/2018 8:01 AM CDT) LDL cholesterol 93 mg/dL (calc) [facility] calculated Comment: [place] Reference range: <100 Desirable range <100 mg/dL for primary prevention; <70 mg/dL for patients with CHD or diabetic patients with > or=2 CHD risk factors. LDL-C is now calculated using the Vicente calculation, which is a validated novel method providing better accuracy than the Friedewald equation in the estimation of LDL-C. [place] VILLAVICENCIO et al. DANIEL. 2013;310(19): 1182-3829 (http://education.Sooligan.Babyoye/faq/SKL717) Specimen Narrative Performed At FASTING:YES [facility] FASTING: YES Resulting Agency Comment Performing Organization Information: Site ID: [id number] Name: [facility] Address: [address] [place] [id number] Director: Gifty Arevalo Performing Organization Address [facility] Phone Number [facility] [place] [address] [place] [phone] COPY(IES) SENT TO: (06/04/2018 8:01 AM CDT) Copies/mL [facility] Comment: [facility] [address] [place] [address] Specimen Narrative Performed At FASTING:YES [facility] FASTING: YES Performing Organization Address City/State/[facility] Phone Number [facility] Triglycerides (06/04/2018 8:01 AM CDT) Triglycerides 136 <150 mg/dL [facility] [place] Specimen Narrative Performed At FASTING:YES [facility] FASTING: YES Resulting Agency Comment Performing Organization Information: Site ID: [id number] Name: [facility] Address: [address] [place] [phone] Director: Gifty Arevalo Performing Organization Address [facility] Phone Number [facility] [address] [address] AST (SGOT) (06/04/2018 8:01 AM CDT) AST 15 10 - 35 U/L [facility] [place] Specimen Narrative Performed At FASTING:YES [facility] FASTING: YES Resulting Agency Comment Performing Organization Information: Site ID: [facility] Name: [facility] Address: [address] [place] [phone] Director: Gifty Arevalo Performing Organization Address [facility] Phone Number [facility] [place] [phone] HDL cholesterol (06/04/2018 8:01 AM CDT) HDL cholesterol 48 >40 mg/dL [facility] [place] Specimen Narrative Performed At FASTING:YES [facility] FASTING: YES Resulting Agency Comment Performing Organization Information: Site ID: [facility] Name: [facility] Address: [address] [place] [address] [place] [phone] Director: Gifty Arevalo Performing Organization Address [facility] Phone Number [facility] [place] [address] [place] [phone] Cholesterol (06/04/2018 8:01 AM CDT) Cholesterol, total 164 <200 mg/dL [facility] Specimen Narrative Performed At FASTING:YES [facility] FASTING: YES Resulting Agency Comment Performing Organization Information: Site ID: A Name: [facility] Address: [address] [place] [phone] Director: Gifty Arevalo Performing Organization Address [facility] Phone Number [facility] [place] [address] [place] [address] [phone] Lipid panel (06/04/2018 8:01 AM CDT) Cholesterol, total 164 <200 mg/dL [facility] HDL cholesterol 48 >40 mg/dL [facility] Triglycerides 136 <150 mg/dL [facility] LDL cholesterol 93 mg/dL (calc) [facility] calculated Comment: [place] Reference range: <100 Desirable range <100 mg/dL for primary prevention; <70 mg/dL for patients with CHD or diabetic patients with > or=2 CHD risk factors. LDL-C is now calculated using the [place]-Mejia calculation, which is a validated novel method providing better accuracy than the Friedewald equation in the estimation of LDL-C. [place] VILLAVICENCIO et al. DANIEL. 2013;310(19): 5381-6437 (http://education.Sooligan.Babyoye/faq/MGX138) Cholesterol/HDL 3.4 <5.0 (calc) [facility] Non-HDL cholesterol 116 <130 mg/dL [facility] Comment: (calc) [place] For patients with diabetes plus 1 major ASCVD risk factor, treating to a non-HDL-C goal of <100 mg/dL (LDL-C of <70 mg/dL) is considered a therapeutic option. Specimen Narrative Performed At FASTING:YES [facility] FASTING: YES Resulting Agency Comment Performing Organization Information: Site ID: A Name: [facility] Address: [address] [place] [phone] Director: Gifty Arevalo Performing Organization Address City/State/Zipcode Phone Number [facility] [place] [address] [place] [address] Nm myocardial perfusion (05/07/2018) Narrative Performed At Obtain medical records (05/04/2018) Narrative Performed At after 05/01/2018 Advance Directives Patient has advance care planning documents on file. For more information, please contact:Gary Tapia[address] [place] [address]
--- NOTE | 2019-05-02 20:07 | RAD REPORT ---
EXAM DESCRIPTION: Jean Single View05/02/2019 7:41 pm CLINICAL HISTORY: Chest pain COMPARISON: March 2018 FINDINGS: The lungs appear clear of acute infiltrate. The heart is normal size IMPRESSION: No acute abnormalities displayed
[2019-05-02 20:20] LABS: Absolute Lymphocytes (CBC) 1.9 K/uL (0.7-4.9); Basophils % 0.8 % (0-1.3); Hematocrit 42.3 % (39.6-49.0); Lymphocytes % 34.4 % (15.3-44.8); MPV 9.2 fL (7.6-11.3); RBC Red Blood Cell Count 4.34 M/uL (4.33-5.43)
[2019-05-02 20:34] LABS: Protime INR 0.94
[2019-05-02 20:53] LABS: ALT/SGPT 28 U/L (12-78); AST/SGOT 12 U/L (15-37); Albumin 4.1 g/dL (3.4-5.0); Alkaline Phosphatase 59 U/L (45-117); BUN Blood Urea Nitrogen 12 mg/dL (7-18); Bicarbonate 31 mmol/L (21-32); Bilirubin Direct 0.1 mg/dL (0-0.2); Bilirubin Total 0.4 mg/dL (0.2-1.0); Glucose Level 94 mg/dL (74-106); Magnesium 2.4 mg/dL (1.8-2.4); NT PRO-BNP 114 pg/mL (<125); Potassium 4.6 mmol/L (3.5-5.1); Protein, Total 7.1 g/dL (6.4-8.2); Sodium Level 140 mmol/L (136-145); Troponin (Emerg Dept Use Only) < 0.02 ng/mL (0.0-0.045)
--- NOTE | 2019-05-02 23:08 | ER ---
Nurse's Notes [facility] Name: Ton Faith Age: 68 yrs Sex: Male : 1950 Arrival Date: 05/02/2019 Time: 19:01 Bed 7 Private MD: Scot Eaton Diagnosis: Chest pain, unspecified Presentation: 05/02 19:19 Presenting complaint: Patient states: Reports he has been having chest pain for the ea last couple days, saw the tso last week and was placed on a halter due to low HR. Pt reports he has been feeling shaky and his extremities have been tingling. Transition of care: patient was not received from another setting of care. Onset of symptoms was May 02, 2019. Risk Assessment: Do you want to hurt yourself or someone else? Patient reports no desire to harm self or others. Initial Sepsis Screen: Does the patient meet any 2 criteria? No. Patient's initial sepsis screen is negative. Does the patient have a suspected source of infection? No. Patient's initial sepsis screen is negative. Care prior to arrival: None. 19:19 Method Of Arrival: Ambulatory ea 19:19 Acuity: ARACELIS 3 ea Triage Assessment: 19:23 General: Appears uncomfortable, Behavior is appropriate for age. Pain: Denies pain. ea Cardiovascular: Patient's skin is warm and dry. Historical: - Allergies: 19:23 HYDROCODONE; ea 19:23 Keflex; ea 19:23 latex; ea 19:23 Latex, Natural Rubber; ea 19:23 Levofloxacin; ea - Home Meds: 19:23 bisoprolol fumarate Oral [Active]; gabapentin oral oral [Active]; ea 20:36 Amitriptyline Oral [Active]; tr5 - PMHx: 19:23 Migraines; Hypertension; ea - PSHx: 19:23 Carpal Tunnel Repair; ea - Immunization history:: Adult Immunizations up to date. - Social history:: Smoking status: Patient/guardian denies using tobacco. - Ebola Screening: : No symptoms or risks identified at this time. Screenin:21 Abuse screen: Denies threats or abuse. Nutritional screening: No deficits noted. ea Tuberculosis screening: No symptoms or risk factors identified. Fall Risk None identified. Assessment: 20:10 Also complains of Also complains of no other symptoms. General: Appears in no apparent tr5 distress. Behavior is calm, cooperative. Pain: Complains of pain in anterior aspect of left upper chest and left breast Pain does not radiate. Quality of pain is described as aching, Pain began 2 hours ago. Neuro: Level of Consciousness is awake, alert, obeys commands, Oriented to person, place, time, situation, Project Engineering Manager are equal bilaterally Moves all extremities. Cardiovascular: Reports chest pain, Denies Pt complains of shakiness. Heart tones present Bruits absent Capillary refill < 3 seconds Pulses are all present. Edema is absent. Respiratory: Airway is patent Trachea midline Respiratory effort is even, unlabored, Respiratory pattern is regular, symmetrical, Breath sounds are clear bilaterally. GI: No signs and/or symptoms were reported involving the gastrointestinal system. : No signs and/or symptoms were reported regarding the genitourinary system. EENT: No signs and/or symptoms were reported regarding the EENT system. Derm: Skin is intact, is healthy with good turgor, Skin is dry, Skin is pink, warm \T\ dry. Musculoskeletal: Capillary refill < 3 seconds, Range of motion: intact in all extremities. 22:12 Reassessment: Pt reports headache with a pain of 3/10. Provider notified. tr5 23:00 Reassessment: Patient and/or family updated on plan of care and expected duration. Pain tr5 level reassessed. Patient is alert, oriented x 3, equal unlabored respirations, skin warm/dry/pink. Patient states feeling better. 23:15 Reassessment: Patient is alert, oriented x 3, equal unlabored respirations, skin lp1 warm/dry/pink. Provider at bedside to discuss plan of care and pending admission with patient and Patient states feeling better. Vital Signs: 19:21 BP 165 / 95; Pulse 54; Resp 18; Temp 98; Pulse Ox 100% ; Weight 88.9 kg; Height 5 ft. ea 10 in. (177.80 cm); 20:55 BP 137 / 77; Pulse 50; Resp 17; Pulse Ox 98% on R/A; tr5 22:15 BP 145 / 70; Pulse 48; Resp 16; Pulse Ox 100% on R/A; tr5 23:00 BP 156 / 80; Pulse 45; Resp 12; Pulse Ox 97% on R/A; tr5 05/03 00:24 BP 169 / 79; Pulse 50; Resp 16; Pulse Ox 99% on R/A; tr5 05/02 19:21 Body Mass Index 28.12 (88.90 kg, 177.80 cm) ea ED Course: 05/02 19:01 Patient arrived in ED. as 19:03 Scot Eaton MD is Private Physician. as 19:06 Sudarshan Zhang MD is Attending Physician. tw4 19:21 Triage completed. ea 19:22 Patient has correct armband on for positive identification. Bed in low position. Call ea light in reach. Side rails up X2. Pulse ox on. NIBP on. 19:39 XRAY Chest (1 view) In Process Unspecified. EDMS 20:00 Arm band placed on. tr5 20:00 Patient maintains SpO2 saturation greater than 95% on room air. tr5 20:04 Inserted saline lock: 20 gauge in right antecubital area, using aseptic technique. ag4 Blood collected. 20:05 EKG done, by ED staff, reviewed by Sudarshan Zhang MD. ag4 20:10 Door closed. Noise minimized. Warm blanket given. tr5 20:12 Dre Treadwell, RN is Primary Nurse. tr5 22:11 CT Head Brain wo Cont In Process Unspecified. EDMS 22:16 Awaiting radiology results. tr5 23:05 Rboert Lyons MD is Hospitalizing Provider. tw4 23:45 No provider procedures requiring assistance completed. Patient admitted, IV remains in lp1 place. 05/03 00:42 transfer transportation to receiving facility. tr5 00:42 Report given to Shadia WOODARD. tr5 Administered Medications: No medications were administered Outcome: 05/02 23:06 Decision to Hospitalize by Provider. tw4 23:45 Condition: stable lp1 23:45 Instructed on the need for admit. 05/03 00:42 Admitted to Med/surg accompanied by tech, via wheelchair, with chart, Report called to caroline Reno RN 01:17 Patient left the ED. tr5 Signatures: Dispatcher [employer] EDMS Lenora Alvarado Laura, RN RN lp1 Janet Rome RN RN Sudarshan Bueno MD MD tw4 Keyshawn Yadav ag4 Dre Treadwell, RN RN tr5
--- NOTE | 2019-05-02 23:08 | EDPHYS ---
Physician Documentation [facility] Name: Ton Faith Age: 68 yrs Sex: Male : 1950 Arrival Date: 05/02/2019 Time: 19:01 Bed 7 Private MD: Scot Eaton ED Physician Sudarshan Zhang HPI: 05/03 00:45 This 68 yrs old Male presents to ER via Ambulatory with complaints of Chest tw4 Pain. 00:45 The patient or guardian reports chest pain that is located primarily in the anterior tw4 chest wall. Onset: today. The pain does not radiate. Associated signs and symptoms: The patient has no apparent associated signs or symptoms. The chest pain is described as dull. Duration: The patient or guardian reports a single episode, that is now resolved. Modifying factors: The symptoms are alleviated by nothing. the symptoms are aggravated by nothing. Severity of pain: At its worst the pain was moderate in the emergency department the pain is unchanged. The patient has not experienced similar symptoms in the past. Historical: - Allergies: 05/02 19:23 HYDROCODONE; ea 19:23 Keflex; ea 19:23 latex; ea 19:23 Latex, Natural Rubber; ea 19:23 Levofloxacin; ea - Home Meds: 19:23 bisoprolol fumarate Oral [Active]; gabapentin oral oral [Active]; ea 20:36 Amitriptyline Oral [Active]; tr5 - PMHx: 19:23 Migraines; Hypertension; ea - PSHx: 19:23 Carpal Tunnel Repair; ea - Immunization history:: Adult Immunizations up to date. - Social history:: Smoking status: Patient/guardian denies using tobacco. - Ebola Screening: : No symptoms or risks identified at this time. ROS: 05/03 00:45 Constitutional: Negative for fever, chills, and weight loss, Eyes: Negative for injury, tw4 pain, redness, and discharge, Neck: Negative for injury, pain, and swelling, Respiratory: Negative for shortness of breath, cough, wheezing, and pleuritic chest pain, Abdomen/GI: Negative for abdominal pain, nausea, vomiting, diarrhea, and constipation, Back: Negative for injury and pain, MS/Extremity: Negative for injury and deformity. Cardiovascular: Positive for chest pain, Negative for edema, orthopnea, palpitations, paroxysmal nocturnal dyspnea. Exam: 00:45 Constitutional: This is a well developed, well nourished patient who is awake, alert, tw4 and in no acute distress. Head/Face: Normocephalic, atraumatic. Chest/axilla: Normal chest wall appearance and motion. Nontender with no deformity. No lesions are appreciated. Cardiovascular: Regular rate and rhythm with a normal S1 and S2. No gallops, murmurs, or rubs. Normal PMI, no JVD. No pulse deficits. Respiratory: Lungs have equal breath sounds bilaterally, clear to auscultation and percussion. No rales, rhonchi or wheezes noted. No increased work of breathing, no retractions or nasal flaring. Abdomen/GI: Soft, non-tender, with normal bowel sounds. No distension or tympany. No guarding or rebound. No evidence of tenderness throughout. Back: No spinal tenderness. No costovertebral tenderness. Full range of motion. MS/ Extremity: Pulses equal, no cyanosis. Neurovascular intact. Full, normal range of motion. Neuro: Awake and alert, GCS 15, oriented to person, place, time, and situation. Cranial nerves II-XII grossly intact. Motor strength 5/5 in all extremities. Sensory grossly intact. Cerebellar exam normal. Normal gait. Vital Signs: 05/02 19:21 BP 165 / 95; Pulse 54; Resp 18; Temp 98; Pulse Ox 100% ; Weight 88.9 kg; Height 5 ft. ea 10 in. (177.80 cm); 20:55 BP 137 / 77; Pulse 50; Resp 17; Pulse Ox 98% on R/A; tr5 22:15 BP 145 / 70; Pulse 48; Resp 16; Pulse Ox 100% on R/A; tr5 23:00 BP 156 / 80; Pulse 45; Resp 12; Pulse Ox 97% on R/A; tr5 05/03 00:24 BP 169 / 79; Pulse 50; Resp 16; Pulse Ox 99% on R/A; tr5 05/02 19:21 Body Mass Index 28.12 (88.90 kg, 177.80 cm) ea MDM: 05/02 19:06 Patient medically screened. tw4 05/03 00:45 HEART Score: History: Moderately Suspicious (1), ECG: Non specific repolarization tw4 disturbance / LBTB / PM (1), Age: Risk Factors: > or = 3 Risk factors for atherosclerotic disease (2). Data reviewed: vital signs, nurses notes. Data interpreted: Pulse oximetry: Interpretation: normal. Counseling: I had a detailed discussion with the patient and/or guardian regarding: the historical points, exam findings, and any diagnostic results supporting the discharge/admit diagnosis. Physician consultation: Robert Lyons MD regarding admission. 05/02 19:32 Order name: Basic Metabolic Panel [facility] 05/02 19:32 Order name: CBC with Diff tw 05/02 19:32 Order name: LFT's [facility] 05/02 19:32 Order name: Magnesium tw 05/02 19:32 Order name: NT PRO-BNP [facility] 05/02 19:32 Order name: PT-INR [facility] 05/02 19:32 Order name: Troponin (emerg Dept Use Only) [facility] 05/02 19:32 Order name: XRAY Chest (1 view) [facility] 05/02 21:44 Order name: CT Head Brain wo Cont tw 05/03 00:30 Order name: Lipid Profile [facility] 05/03 00:30 Order name: Lipid Profile [facility] 05/03 00:30 Order name: Troponin I [facility] 05/03 00:30 Order name: Troponin I [facility] 05/03 00:30 Order name: Troponin I [facility] 05/02 19:32 Order name: EKG; Complete Time: 19:34 05/02 19:32 Order name: Cardiac monitoring; Complete Time: 19:51 [facility] 05/02 19:32 Order name: EKG - Nurse/Tech; Complete Time: 19:51 05/02 19:32 Order name: IV Saline Lock; Complete Time: 20:06 [facility] 05/02 19:32 Order name: Labs collected and sent; Complete Time: 20:06 [facility] 05/02 19:32 Order name: O2 Per Protocol; Complete Time: 19:51 [facility] 05/02 19:32 Order name: O2 Sat Monitoring; Complete Time: 19:51 [facility] 05/03 00:29 Order name: CONS Physician Consult [facility] 05/03 00:29 Order name: Heart Healthy [facility] 05/03 00:29 Order name: Echo with Doppler [facility] 05/03 00:30 Order name: EKG Electrocardiogram [facility] 05/03 00:30 Order name: EKG Electrocardiogram [facility] EC:45 Rate is 52 beats/min. Rhythm is regular. QRS [place] is Normal. [place] interval is normal. QRS tw4 interval is normal. QT interval is normal. No Q waves. T waves are Normal. No ST changes noted. Clinical impression: Sinus bradycardia. Interpreted by me. Reviewed by me. Administered Medications: No medications were administered Disposition: 05/02/19 23:06 Hospitalization ordered by Robert Lyons for Observation. Preliminary diagnosis is Chest pain, unspecified. - Bed requested for Telemetry/MedSurg (observation). - Status is Observation. tr5 - Condition is Stable. - Problem is new. - Symptoms have improved. UTI on Admission? No Signatures: Dispatcher [employer] [facility] Desiree Lara, VANCE RN Janet Li RN Sudarshan Ruvalcaba ea, MD MD tw4 Dre Treadwell RN RN tr5 Corrections: (The following items were deleted from the chart) 00:20 05/02 23:06 Hospitalization Ordered by Robert Lyons MD for Observation. Preliminary cg diagnosis is Chest pain, unspecified. Bed requested for Telemetry/MedSurg (observation). Status is Observation. Condition is Stable. Problem is new. Symptoms have improved. UTI on Admission? No. tw4 05/03 01:17 00:20 05/02/2019 23:06 Hospitalization Ordered by Robert Lyons MD for Observation. tr5 Preliminary diagnosis is Chest pain, unspecified. Bed requested for Telemetry/MedSurg (observation). Status is Observation. Condition is Stable. Problem is new. Symptoms have improved. UTI on Admission? No. cg
[2019-05-03] MEDS ORDERED: MORPHINE 4 MG/ML SYR IV PRN (00:04)
[2019-05-03] MEDS ORDERED: ACETAMINOPHEN 500 MG TAB PO PRN (00:04)
[2019-05-03] MEDS ORDERED: ALPRAZOLAM 0.25 MG TABLET PO PRN (00:04)
[2019-05-03 01:38] VITALS: BMI 28.0
[2019-05-03 05:46] LABS: HDL Cholesterol 55 mg/dL (40-60); LDL Cholesterol, Calculated 72 (<130); Troponin I < 0.02 ng/mL (0.0-0.045)
[2019-05-03 08:04] LABS: Urine Appearance CLEAR; Urine Bilirubin NEGATIVE (NEG); Urine Blood NEGATIVE (NEG); Urine Color YELLOW; Urine Glucose NEGATIVE (NEG); Urine Protein NEGATIVE (NEG); Urine Urobilinogen 0.2 mg/dL (0.2-1.0)
[2019-05-03 08:13] LABS: Urine Microscopic Reflex NO UMIC
[2019-05-03] MEDS ORDERED: BISOPROLOL 5 MG TABLET PO SCH (09:00)
[2019-05-03] MEDS ORDERED: METOPROLOL TAR 50 MG TAB PO SCH (09:00)
[2019-05-03] MEDS ORDERED: ENOXAPARIN 40 MG/0.4 ML SQ SCH (09:00)
[2019-05-03] MEDS ORDERED: ASPIRIN EC 81 MG TAB PO SCH (09:00)
--- NOTE | 2019-05-03 10:54 | RAD REPORT ---
EXAM DESCRIPTION: Head Brain Wo Cont CLINICAL HISTORY: 68 years Male HEADACHE COMPARISON: None TECHNIQUE: Images were obtained in axial, sagittal, and coronal planes. This exam was performed according to our departmental dose-optimization program which includes use of Automated Exposure Control, adjustment of the mA and/or kV according to patient size and/or use of i terative reconstruction technique. FINDINGS: Ventricular system is mildly enlarged. Mild prominence of the cortical sulci. No abnormal areas of increased attenuation seen. No extra-axial fluid collections noted. No evidence for skull fracture. Symmetric aeration mastoid air cells bilaterally. Unremarkable parana lakisha sinuses. IMPRESSION: No acute intracranial abnormality. No evidence for hemorrhage, mass lesion, or large acu te infarction. Electronically signed by: Ayesha Jay MD 05/02/2019 10:17 PM CDT Due to temporary technical issues with the PACS/Fluency reporting system, reports are being signed by the in house radiologist as a courtesy to ensure prompt reporting. The interpreting radiologist is f ully responsible for the content of the report.
--- NOTE | 2019-05-03 13:36 | EKG ---
Test Date: 2019-05-03 Test Time: 07:22:22 Violin Teacher: EUGENE MEASUREMENT RESULTS: Intervals: Rate: 57 SC: 204 QRSD: 88 QT: 436 QTc: 424 [place]: P: 46 SC: 204 QRS: 20 T: 58 INTERPRETIVE STATEMENTS: Sinus bradycardia with premature atrial complexes Otherwise normal ECG Compared to ECG 05/02/2019 19:14:31 Atrial premature complex(es) now present Electronically Signed On 05-03-19 13:34:05 CDT by Miguel Watson
--- NOTE | 2019-05-03 13:38 | EKG ---
Test Date: 2019-05-02 Test Time: 19:14:31 Division Order Technician: JAX MEASUREMENT RESULTS: Intervals: Rate: 52 NC: 206 QRSD: 86 QT: 426 QTc: 396 [place]: P: 43 NC: 206 QRS: 16 T: 48 INTERPRETIVE STATEMENTS: Sinus bradycardia Otherwise normal ECG Compared to ECG 03/31/2018 19:38:44 Sinus rhythm no longer present Electronically Signed On 05-03-19 13:34:20 CDT by Miguel Watson
--- NOTE | 2019-05-03 13:59 | ECHO ---
HEIGHT: 5 ft 10 in WEIGHT: 195 lb 1.6 oz DATE OF STUDY: 05/03/[address]: Robert Lyons MD 2-DIMENSIONAL: YES M.MODE: YES DOPPLER: YES COLOR FLOW: YES TDS: NO PORTABLE: NO DEFINITY: NO BUBBLE STUDY: NO DIAGNOSIS: CHEST PAIN RULE OUT ACS CARDIAC HISTORY: CATHERIZATION: NO SURGERY: NO PROSTHETIC VALVE: NO PACEMAKER: NO MEASUREMENTS (cm) DIASTOLIC (NORMALS) SYSTOLIC (NORMALS) IVSd 0.9 (0.6-1.2) LA Diam 2.4 (1.9-4.0) LVEF 67% LVIDd 4.0 (3.5-5.7) LVIDs 2.5 (2.0-3.5) %FS 37% LVPWd 1.3 (0.6-1.2) Ao Diam 2.9 (2.0-3.7) 2 DIMENSIONAL ASSESSMENT: RIGHT ATRIUM: NORMAL LEFT ATRIUM: NORMAL RIGHT VENTRICLE: NORMAL LEFT VENTRICLE: NORMAL TRICUSPID VALVE: NORMAL MITRAL VALVE: NORMAL PULMONIC VALVE: NORMAL AORTIC VALVE: NORMAL PERICARDIAL EFFUSION: NONE AORTIC ROOT: NORMAL LEFT VENTRICULAR WALL MOTION: NORMAL DOPPLER/COLOR FLOW: NORMAL COMMENTS: NORMAL 2D ECHOCARDIOGRAM WITH DOPPLER. NO WALL MOTION ABNORMALITY. NO EFFUSION. TECHNOLOGIST: Grant ARMSTRONG
[2019-05-03 17:21] VITALS: O2SAT 100
--- NOTE | 2019-05-03 17:22 | PN ---
Date of Progress Note: 05/03/2019 Patient states he is not having the discomfort in the chest area that he had prior to presentation to the hospital, although he still has occasional episodes in the upper part of the chest. He is seen by Cardiology, who felt it was noncardiac in origin. EGD was suggested. An echo was done, which was within normal limits, and prior review of records revealed negative stress tests in the recent past. Patient will start on Protonix, which he said gave him significant relief couple months ago, only t ook it for 2 weeks. He has been seen since that time by Cardiology in [place] and telemetry was plac ed on him because his pulse was in the 50 range, and at one time thought he was perhaps symptomatic a t that stage, however, it does sound like the symptoms are more GI than cardiac. We will continue to monitor today, and if there is no significant change by amy, he should be hopefully discharged. HR/MODL Voice ID: [id number] Report ID: [id number]
[2019-05-03 18:31] VITALS: BP 145/75; TEMP 97.9
[2019-05-03] MEDS ORDERED: ATORVASTATIN 10 MG TAB PO SCH (21:00)
[2019-05-03] MEDS ORDERED: GABAPENTIN 100 MG CAP PO SCH (21:00)
--- NOTE | 2019-05-03 21:02 | P.HP ---
Certification for Inpatient Patient admitted to: Observation With expected LOS: <2 Midnights Patient will require the following post-hospital care: None Practitioner: I am a practitioner with admitting privileges, knowledge of patient current condition, hospital course, and medical plan of care. Services: Services provided to patient in accordance with Admission requirements found in Title 42 Section 412.3 of the Code of Federal Regulations Patient History Date of Service: 05/03/19 Reason for admission: Chest pain rule out acute coronary syndrome History of Present Illness: Patient is a 58-year-old gentleman who came to the hospital with chest pain. Patient had nausea and diaphoresis. The chest pain was sharp and it reminded him of his prior history of cardiac disease. 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 He has had a stress test done recently. Patient states that his symptoms have resolved. At this time, is history of coronary artery disease will be admitted to the hospital for further evaluation. He has been monitored for bradycardia. He was on a Holter monitor which was turned in 24 hr ago. No abnormality as of yet. At this time, we will go ahead and rule him out and have Cardiology see him. Allergies codeine [Codeine] Allergy (Mild, Verified 05/03/19 03:05) Hives/Rash latex Allergy (Mild, Verified 05/03/19 03:05) Hives cephalexin [From Keflex] Allergy (Verified 05/03/19 03:05) Nausea/Vomiting Latex, Natural Rubber Allergy (Verified 05/03/19 03:05) Hives/Rash levofloxacin Allergy (Verified 05/03/19 03:05) Unknown Hydrocodone-Acetaminophen Allergy (Uncoded 05/03/19 03:05) muscle cramps Levo Allergy (Uncoded 05/03/19 03:05) Nausea/Vomiting Home Medications: Bisoprolol Fumarate [Zebeta*] 10 mg PO DAILY 04/27/17 Gabapentin [Neurontin] 100 mg PO BEDTIME 05/03/19 Pravastatin Sodium [Pravachol] 40 mg PO DAILY 05/03/19 - Past Medical/Surgical History Has patient received pneumonia vaccine in the past: Yes Diabetic: No -: HTN -: Dizziness -: Migraines -: Miniscus repair on right knee -: left shoulder Sx - Family History Father Medical History: Cancer Notes: Prostate cancer Mother Medical History: Heart disease, Other (see notes) Notes: CHF - Social History Smoking Status: Never smoker Alcohol use: Yes CD- Drugs: No Caffeine use: No Place of Residence: Home Review of Systems 10-point ROS is otherwise unremarkable Physical Examination - Vital Signs Temperature: 97.9 F Blood Pressure: 145/75 Pulse: 52 Respirations: 18 Pulse Ox (%): 100 - Physical Exam General: Alert, In no apparent distress, Oriented x3 HEENT: Atraumatic, PERRLA, Mucous membr. moist/pink, EOMI, Sclerae nonicteric Neck: Supple, 2+ carotid pulse no bruit, No LAD, Without JVD or thyroid abnormality Respiratory: Clear to auscultation bilaterally, Normal air movement Cardiovascular: Regular rate/rhythm, Normal S1 S2, No murmurs Gastrointestinal: Normal bowel sounds, Soft and benign, Non-distended, No tenderness Musculoskeletal: No clubbing, No swelling, No tenderness Integumentary: No rashes Neurological: Normal gait, Normal speech, Normal strength at 5/5 x4 extr, Normal tone, Sensation intact, Cranial nerves 3-12 intact, Normal affect Lymphatics: No axilla or inguinal lymphadenopathy Assessment & Plan - Problems (Diagnosis) (1) Chest pain, rule out acute myocardial infarction Status: Acute (2) Bradyarrhythmia Status: Acute (3) Hypovolemia Onset Date: 04/27/17 Status: Acute (4) Syncope Onset Date: 04/27/17 Status: Acute Qualifiers: Syncope type: unspecified Qualified Code(s): R55 - Syncope and collapse (5) Hypertension Status: Chronic Qualifiers: Hypertension type: essential hypertension Qualified Code(s): I10 - Essential (primary) hypertension - Plan 1. Serial troponins and EKG 2. Cardiology consultation 3. Echocardiogram 4. Anti-platelet therapy, anti coagulation, beta-tammy, statin, and O2 as needed 5. IV morphine for pain 6. Nitro p.r.n. 7. Holter monitor results Discharge Plan: Home Plan to discharge in: 24 Hours - Advance Directives Does patient have a Living Will: No Does patient have a Durable POA for Healthcare: No - Code Status/Comfort Care Code Status Assessed: Yes Code Status: Full Code Critical Care: No Time Spent Managing PTS Care (In Minutes): 40
[2019-05-04] MEDS ORDERED: PANTOPRAZOLE 40MG TABLET PO SCH (06:30)
--- NOTE | 2019-05-04 11:48 | CON ---
Date of Consultation: 05/03/2019 Reason For Consultation: Chest pain. History Of Present Illness: Mr. Faith is a 68-year-old male. He has a history of migraine and hyper tension. Apparently, he has had some pulmonary issues and has been having some pulmonary testing at the [facility]. Over the last 2 days, has been having some mid epigastric chest pain radiating all the way up to the mid chest without any nausea or vomiting. He denied any PND, orthopnea, pedal chuyita a, palpitations, or syncope. He has also had some episodes where he felt very diaphoretic and dizzy with what sounded like a decrease in his heart rate. 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 He is now asymptomatic. He has already ruled out for an FL. Allergies: TYLENOL NO. 3, CODEINE, LATEX, AND LEVAQUIN. Review of Systems: Negative. Social History: Negative for tobacco, drugs, or alcohol. Home Medications: Zebeta, Pravachol, and Neurontin. Physical Examination: Vital Signs: Stable. He was afebrile. General: He was in no acute distress. HEENT: Negative. Neck: Supple without bruit, lymphadenopathy, JVD, or thyromegaly. Chest: Clear to auscultation and percussion. Cardiac: Revealed a regular rhythm and rate. No murmurs, gallops, or rubs. Abdomen: Benign. Extremities: Revealed no clubbing, cyanosis, or edema. Diagnostic Data: All negative. Impression And Plan: Mr. Faith issues. One of them is the episode of diaphoresis, weakne ss, and dizziness with low heart rate. We will try to get the results of his Holter monitor. I thin k we should probably switch him from his beta-tammy, Zebeta, to something else. I will discuss the case further with Dr. Eaton. He had an echocardiogram that was done today, which was normal witho ut any wall motion abnormalities or effusion. His aortic valve was normal. He had pulmonary workup pending at the [facility]. From my standpoint, I think he can go home, follow up with his primary c ardiologist, and have a stress test as an outpatient. He had one about a year ago, which was negative. His hypertension is well controlled. His migraine headache is well controlled. His d yslipidemia is well controlled. He can go home today. CECELIA Voice ID: [id number] Report ID: [id number]
== END 2019-05-03 18:30 | disposition home or self-care (01) ==
LOC: ER 18:58 → ERHOLD 05-03 00:05 → 4TH 05-03 00:51
PROVIDERS: ADMIT Hospitalist; ATTEND Family Medicine
DX: R07.9 Chest pain, unspecified (principal); R00.1 Bradycardia, unspecified; I10 Essential (primary) hypertension; E78.5 Hyperlipidemia, unspecified; Z79.899 Other long term (current) drug therapy; Z86.69 Personal history of other diseases of the nervous system and sense organs
CPT/HCPCS: 93005 ×2; 93306; 85025; 80048; 36415; 83735; 85610; 80061; 80076; 81003; 84484 ×3; 83880; 70450; 71045; J1650; 99285; G0378